=== PATIENT | male | born 1950 | race African-American/Black ===

== ENCOUNTER 2016-12-16 18:19 | Inpatient (IN) | payer OTHER ==
--- NOTE | ~2016-12-16 | DS ---
Discharge Summary [facility] [address] [place]. [address] NAME: RAMOS BERGERON : 48 STATUS : ADM IN [facility]#: [id number] AGE: 66 ADM/REG DATE : 12/16/16 MR#: [id number] REPORT SERV DATE: 12/25/16 DICTATED BY: CARIE BAZZI DATE: 12/25/16 REPORT STATUS : Draft TRANSCRIBED BY: MODL DATE: 12/25/16 ADMISSION DATE: 12/16/2016 DISCHARGE DATE: 12/25/2016 CONSULTANTS: Radha Marcus, ALEXANDRA, and supervised neurologist. DISCHARGE DIAGNOSES: 1. 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 2. 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 3. Rheumatoid arthritis with osteoarthritis. 4. Secondary Parkinson's. 5. Diabetes mellitus type 2 with A1c 5.5. 6. Hypertension. 7. Stage 3 chronic kidney disease. 8. Thoracic aortic aneurysm, 3.9 cm. 9. Previous prostate cancer, resected 2012. 10.History of posttraumatic stress disorder and depression, well compensated with medication at this time. 11.Vitamin D deficiency on October 2016. HISTORY: This gentleman has had a previous right middle cerebral artery stroke with resulting left-sided weakness. Presented to the emergency room at [facility] with 3-day history of right-sided weakness with associated difficulty with dysarthria, dysphagia, and dysmetria. Reportedly began on the Friday prior to admission, difficulty using his right arm to feed himself. Family had also reported some dysarthria and dysphagia, was suspected because of some difficulty swallowing potato chips on the day of admission. He was referred to our team for inpatient care. Imaging included a CT scan of the brain without contrast which showed moderate advanced diffuse atrophy with advanced deep white matter chronic microvascular changes. Stable, 1 cm old infarct, right periventricular area within the genao radiata. Stable, small 4 mm old lacunar infarct, right side of the leesa, numerous small hypodensities, bilateral basal ganglia and thalamus suggesting prominent perivascular spaces. MRI of the brain, 12/17/2016, revealed moderate generalized atrophy. Extensive, old, deep white matter changes and an acute nonhemorrhagic left MCA periventricular infarction. There was old hemosiderin deposits in the right medial frontal lobe and some hemorrhage in an old infarction in the posterior temporal region on the left. MRA of the brain revealed some atherosclerotic changes but no cutoff. MRA of the neck revealed diffuse atherosclerotic redundancy of the internal carotids. No significant stenosis was noted. Echocardiogram on 12/19/2016 showed left atrial size, 3.1 cm, left ventricular ejection fraction, 55-60%. Negative bubble study. Neurology recommended aspirin, Plavix, and statin for secondary stroke prevention. They also felt he had some Parkinson-like features, and started him on low-dose Sinemet with some improvement. Discharge Summary [address] [place]. [address] NAME: RAMOS BERGERON : [birth year] STATUS : ADM IN PAT#: [id number] AGE: 66 ADM/REG DATE : 12/16/16 MR#: [id number] REPORT SERV DATE: 12/25/16 DICTATED BY: CARIE BAZZI DATE: 12/25/16 REPORT STATUS : Draft TRANSCRIBED BY: MODL DATE: 12/25/16 The patient has a lot of chronic pain in his MCPs and in his left hip. X-rays reveal osteoarthritis-type changes. He states he has a history of rheumatoid arthritis also. We did not want to start him on steroids or any other disease modifying agents. So we did order just some low-dose pain medicine for his hands and hip as needed. He is felt to need inpatient rehab and those arrangements are in process. DISCHARGE MEDICATIONS: Norvasc 5 mg daily; Abilify 20 mg daily for his PTSD which appears stable; aspirin 325 mg daily; Lipitor 40 mg daily; Sinemet 25/100 half tablet t.i.d.(in the future this could be titrated up slowly), Temovate 0.05% applied to neck, face, ears, and scalp as directed twice a day; Plavix 75 mg daily; Zantac 150 mg twice a day; Zoloft 150 mg daily; Flomax 0.4 mg at bedtime; Tylenol 650 q.6 hours p.r.n. mild pain; [place] 5/325 half tablet twice a day p.r.n. moderate pain; glucose tablets p.r.n. hypoglycemia; vitamin D 1000 units p.o. daily. 28 minutes spent today with the patient and case management and with discharge planning. MALISSA/OSWALDO Carie Bazzi M.D. / [id number] CC: Carmen Bowling [facility] Niki
--- NOTE | ~2016-12-16 | IDS ---
Interim Discharge Summary [facility] [address] [place]. [address] NAME: RAMOS BERGERON : 48 STATUS : ADM IN [facility]#: [id number] AGE: 66 ADM/REG DATE : 12/16/16 MR#: [id number] REPORT SERV DATE: 12/23/16 DICTATED BY: KENNETH CLAY DATE: 12/23/16 REPORT STATUS : Draft TRANSCRIBED BY: OSWALDO DATE: 12/23/16 ADMISSION DATE: 12/16/2016 DISCHARGE DATE: DIAGNOSES: So far is: 1. Acute left middle cerebral artery territory infarct with acute right hemiparesis. Prior history of stroke, which has resulted in left hemiparesis in this patient also unfortunately. So now, he has weakness in both legs and both hands. Still the prior middle cerebral artery territory stroke was much bigger and resulted in much more debility with his left-sided weakness than his acute cerebrovascular accident, which has resulted in right-sided weakness right now. Other diagnoses that are stable at this time include hypertension; hyperlipidemia; non- insulin-dependent diabetes mellitus type 2; chronic kidney disease, stage III with baseline creatinine of 1.4; rheumatoid arthritis, and benign prostatic hypertrophy. BRIEF HOSPITAL COURSE: The patient is a 66-year-old male who was admitted with the diagnosis of essentially an acute CVA. The patient was admitted for supportive and symptomatic care, and an MRI with an MRA was obtained and also Neurology consult was obtained. The patient's MRI did show that he had suffered an acute left MCA stroke, which has left him with right-sided weakness at this time. The patient has already had an old right MCA stroke that had left him with left-sided weakness previously. So now, he has bilateral upper extremity and bilateral lower extremity weakness, which definitely makes him a candidate to go to inpatient rehab. He is waiting for inpatient rehab placement other than that, he has no other acute issues going on. Neurology has suggested aspirin, Lipitor, and other risk modifications and definitely physical therapy, occupational therapy, and speech therapy at this time. Hence, he is only waiting for rehab placement. He continues to have some difficulty feeding himself. He really has no significant dysphagia and is able to eat soft mechanical diet with aspiration precautions, but has hard time bringing his spoon to his mouth because of the right upper extremity weakness now. This should improve with time, and hopefully, he will be able to get inpatient physical therapy and occupational therapy once he goes to the rehab. All his other chronic problems have been stable so far. RRA/MODL Kenneth Clay M.D. / [id number] CC: Carmen Pedraza TIUNDRA LESHAUN
--- NOTE | ~2016-12-16 | HP ---
History And Physical [facility] [id number] [place]. [address] NAME: RAMOS BERGERON : [birth year] STATUS : ADM [facility] PAT#: [id number] AGE: 66 ADM/REG DATE : 12/16/16 MR#: [id number] REPORT SERV DATE: 12/17/16 DICTATED BY: JEFF KRAUSE DATE: 12/16/16 REPORT STATUS : Draft TRANSCRIBED BY: MODKierra DATE: 12/16/16 DATE OF ADMISSION: 12/16/2016 POINT OF ENTRY: [facility] Emergency Department CHIEF COMPLAINT: Right-sided weakness. HISTORY OF PRESENT ILLNESS: Mr. Bergeron is a 66-year-old gentleman with a history of prior right MCA stroke with resulting left-sided weakness as well as non-insulin dependent diabetes mellitus type 2, hypertension, and hyperlipidemia, who presents to the emergency department today with a three-day history of right-sided weakness with associated dysarthria, dysphagia, and dysmetria. The patient states that beginning on Friday he started to notice right-sided weakness as well as trouble feeding himself. His main trouble feeding himself are that he is having trouble using his right arm due to weakness as well as disequilibrium in an attempt to put food into his mouth. Family also report some dysarthria and also some concern for dysphagia, as he was struggling to swallow some potato chips earlier today. Initial evaluation in the emergency department was notable for a CT scan of the brain that was unremarkable. Labs unremarkable, except for evidence of urinary tract infection as well as a urine drug screen positive for amphetamines and opiates, of which these are not on his home medication list. The patient was subsequently admitted to the Hospitalist Service for further evaluation and management. The patient denies any fevers, night sweats, chills, chest pain, cough, sputum production, shortness of breath, abdominal pain, nausea, vomiting, diarrhea, constipation, melena, hematochezia, or hemoptysis. Family does endorse a strong odor to his urine as well as he endorses urinary frequency. REVIEW OF SYSTEMS: Comprehensive review of systems, otherwise negative unless listed in history of present illness. PREVIOUS MEDICAL HISTORY: 1. Prior right MCA stroke with resulting left-sided hemiparesis. 2. Hypertension. 3. Hyperlipidemia. 4. Non-insulin dependent diabetes mellitus type 2. 5. Prostate cancer, status post prostatectomy. 6. Chronic kidney stage III, baseline creatinine 1.2 to 1.4. 7. Rheumatoid arthritis. 8. BPH. 9. History of thoracic aortic aneurysm. 10.History of diastolic dysfunction. History And Physical [address] [place]. [address] NAME: RAMOS BERGERON : 48 STATUS : ADM [facility] PAT#: [id number] AGE: 66 ADM/REG DATE : 12/16/16 MR#: [id number] REPORT SERV DATE: 12/17/16 DICTATED BY: JEFF KRAUSE DATE: 12/16/16 REPORT STATUS : Draft TRANSCRIBED BY: OSWALDO DATE: 12/16/16 SURGICAL HISTORY: 1. Hernia repair. 2. Prostatectomy. ALLERGIES: NO KNOWN DRUG ALLERGIES. HOME MEDICATIONS: 1. Abilify 20 mg daily. 2. Aspirin 325 mg daily. 3. Clobetasol topical cream b.i.d. 4. Lisinopril 10 mg daily. 5. Meloxicam 7.5 mg daily. 6. Metformin 500 mg daily. 7. Zantac 150 mg b.i.d. 8. Sertraline 150 mg daily. 9. Simvastatin 20 mg daily. 10.Flomax 0.4 mg q.h.s. SOCIAL HISTORY: Denies any tobacco, alcohol, or illicits. FAMILY MEDICAL HISTORY: Notable for diabetes and stroke. LABS AND IMAGIN. White count is 8.6, hemoglobin 16.4, hematocrit is 47.5, and platelet count is 233. INR is 1.1. 2. Sodium is 140 potassium 4.4, chloride 106, carbon dioxide 24, BUN 16, creatinine 1.35, glucose of 76, calcium is 9.2, magnesium is 1.9. 3. Troponin is less than 0.02. 4. Flu swab is negative. 5. Alcohol level, aspirin, and acetaminophen levels are negative. However, urine drug screen is positive for amphetamines and opiates. 6. Urinalysis. Specific gravity is 1.011, trace leukocyte esterase, positive nitrites, with 8 white blood cells per high field with many bacteria. 7. CT scan of the brain shows no acute intracranial abnormality shows stable old deep white matter cerebrovascular accident and changes as well as an old right leesa lacunar infarct. 8. EKG, per my review, shows normal sinus rhythm with occasional PVCs. No evidence of any acute ischemia or infarction. 9. Chest x-ray, per my review, shows no acute cardiopulmonary abnormality. PHYSICAL EXAMINATION: VITAL SIGNS: Temperature is 97.9 degrees Fahrenheit, pulse of 75, respirations 24, saturating 100% on room air, blood pressure 147/100. On recheck, blood pressure is now 134/99. GENERAL: The patient is awake, alert, in no acute distress. Resting comfortably in bed. He is a well-developed, well-nourished male. HEENT: Atraumatic and normocephalic. Moist mucous membranes. Pupils are equal, round, History And Physical [address] [address] NAME: RAMOS BERGERON : 48 STATUS : ADM [facility] PAT#: [id number] AGE: 66 ADM/REG DATE : 12/16/16 MR#: [id number] REPORT SERV DATE: 12/17/16 DICTATED BY: JEFF KRAUSE DATE: 12/16/16 REPORT STATUS : Draft TRANSCRIBED BY: MODL DATE: 12/16/16 reactive to light and accommodation. Extraocular eye movements intact. No scleral icterus. NECK: No jugular venous distention. No carotid bruits. CARDIAC: Regular rate and rhythm. Occasional ectopic beats. Normal S1, S2. No murmurs, rubs, or gallops. LUNGS: Clear to auscultation bilaterally. No wheezes, rhonchi, or crackles. ABDOMEN: Soft, nontender, nondistended. Good bowel sounds. No rebound or guarding or rigidity. EXTREMITIES: Warm and well perfused. No cyanosis, clubbing, or edema. SKIN: Warm and dry. PSYCH: Affect is appropriate. NEURO: Alert and oriented x3. Cranial nerves II through XII are grossly intact. The patient does have some slurred dysarthric speech. He does have some chronic weakness on the left side as well as some lesser weakness on the right side, most pronounced is bilateral upper extremity dysmetria on [id number]. Due to lower extremity weakness, heel-to- jauregui was unable to be tested. Gait was not assessed. ASSESSMENT AND PLAN: Mr. Bergeron is a 66-year-old gentleman with a prior history of right middle cerebral artery stroke with left-sided weakness who presents with right-sided weakness as well as dysmetria, dysphagia, and dysarthria concerning for a possible subacute cerebrovascular accident. Problem list: 1. Possible subacute cerebrovascular accident with right-sided weakness, dysphagia, dysarthria, dysmetria. 2. Urinary tract infection. 3. Non-insulin dependent diabetes mellitus type 2. 4. Hypertension. 5. Hyperlipidemia. 6. Abnormal urine drug screen. PLAN: 1. Possible subacute cerebrovascular accident. We will admit the patient to Hospital Service. Continue the patient's home aspirin as well as statin. We will consult Neurology for assistance in obtaining MRI/MRA in the morning. We will hold off on repeat echocardiogram as one was just done in October. Given reports of weakness and dysphagia, we will consult Speech Therapy as well as physical therapy for assistance. We will make the patient nothing by mouth until formal evaluation. 2. Urinary tract infection. The patient does endorse some symptoms as well as having pyuria and bacteria in his urine. We will place the patient on IV Rocephin. Follow up urine culture. 3. Abnormal urine drug screen. I am unclear as to where he obtained opiates as well as amphetamines that are in his urine drug screen as well as they are not on his home medication list. This needs to be addressed further. 4. Non-insulin dependent diabetes mellitus type 2. Holding the patient's metformin. Place him on a level 2 sliding scale. 5. Deep venous thrombosis prophylaxis. Lovenox subcu. History And Physical [address] [address] NAME: RAMOS BERGERON : 48 STATUS : ADM [facility] PAT#: [id number] AGE: 66 ADM/REG DATE : 12/16/16 MR#: [id number] REPORT SERV DATE: 12/17/16 DICTATED BY: JEFF KRAUSE DATE: 12/16/16 REPORT STATUS : Draft TRANSCRIBED BY: OSWALDO DATE: 12/16/16 CODE STATUS: The patient wished to be full code. JAYDE/OSWALDO Jeff Krause MD / [id number] CC: MD Dr. Pina Zee
--- NOTE | ~2016-12-16 | CN ---
Consultation Report [facility] [address] [place]. [address] NAME: RAMOS BERGERON : 48 STATUS : ADM [facility] PAT#: [id number] AGE: 66 ADM/REG DATE : 12/16/16 MR#: [id number] REPORT SERV DATE: 12/18/16 DICTATED BY: GIL ALFONSO DATE: 12/18/16 REPORT STATUS : Draft TRANSCRIBED BY: MODKierra DATE: 12/18/16 NEUROLOGY CONSULTATION DATE OF CONSULTATION: 12/18/2016 REASON FOR CONSULTATION: Possible stroke. HOSPITALIST: George Munoz MD HISTORY OF PRESENT ILLNESS: The patient is a 66-year-old male, who was admitted to the hospital because of a three-day history of right-sided weakness. He also experienced dysarthria, dysphagia, dysmetria. Once he was brought into the emergency department, it was found that he had a mild urinary tract infection. The patient also has a history of a right sided MCA stroke with left-sided deficits. However, these symptoms were new and they were different. PAST MEDICAL HISTORY: Diabetes mellitus type 2, hypertension, hyperlipidemia, right-sided MCA stroke, prostate cancer, chronic kidney disease stage 3, rheumatoid arthritis, BPH, thoracic aortic aneurysm, chronic diastolic heart failure, history of tobacco abuse. PAST SURGICAL HISTORY: Hernia repair and prostatectomy. HOME MEDICATION LIST: Includes Abilify 20 mg daily, Vannesa aspirin 325 mg daily, Temovate cream 0.05% topically twice a day, Prinivil 10 mg daily, Mobic 7.5 mg daily, metformin 500 mg daily, Zantac 150 mg b.i.d., Zoloft 150 mg daily, Zocor 20 mg daily, and Flomax 0.4 mg at bedtime. ALLERGIES: NONE. SOCIAL HISTORY: The patient is . He has one son. He lives with his sister. He is retired. He is a former smoker. Does not drink alcohol and reportedly does not use illicits. FAMILY HISTORY: Unobtainable from the patient. REVIEW OF SYSTEMS: For pertinent positives, please see HPI. PHYSICAL EXAMINATION: VITAL SIGNS: The patient is a 66-year-old male, who stands 5 feet 8 inches tall and weighs 162 pounds. He is currently afebrile. Heart rate 80, respiratory rate 18, O2 saturations on room air 98%, blood pressure 141/99. NEURO: The patient is awake. He is oriented x4. He is very dysarthric. There is no aphasia. Pupils are 3 mm, PERRLA. He does have a left-sided facial droop and left tongue Consultation Report [facility] [id number] [place]. [address] NAME: RAMOS BERGERON : 48 STATUS : ADM [facility] PAT#: [id number] AGE: 66 ADM/REG DATE : 12/16/16 MR#: [id number] REPORT SERV DATE: 12/18/16 DICTATED BY: GIL ALFONSO DATE: 12/18/16 REPORT STATUS : Draft TRANSCRIBED BY: OSWALDO DATE: 12/18/16 deviation. No reported sensory deficits in the face. Peripheral vision is fairly intact. He can move all extremities x4. Left arm is slightly contracted in the hand. Upper extremity strength is a 4/5 on the left and a 3/5 on the right. He does have a right pronator drift. He does exhibit ataxia with [id number]. Unable to do [id number]. Does have a slight action tremor on the left. Upper DTRs are 3+ and brisk on the left, 2+ on the right. No reported sensory deficits in the upper extremities. In the lower extremities, strength is a 4/5 on the left and a 3/5 on the right. Left patellar reflex is 3+ and brisk and on the right, it is 2+. He has upgoing toes on the left, downgoing on the right. Clonus in both ankles, more prominent in the left than the right. No reported sensory deficits. The patient did not get up and ambulate at this time. NECK: No carotid bruits, JVD, or thyromegaly. CHEST: Lung sounds clear. Diminished in the bases. CARDIAC: Regular rate and rhythm. LABORATORY DATA: CBC normal. BMP relatively normal, except the creatinine is 1.35. Cholesterol values are elevated. Initial UA is mildly positive for UTI; however, the cath specimen was negative for UTI. MRI of the brain reveals acute nonhemorrhagic left MCA territory infarction, although there are some old hemorrhagic changes. MRA of the head and neck, no vessel cut-off or stenosis. ASSESSMENT/PLAN: 1. Acute left MCA territory infarction. At this point, the patient has been on aspirin 325 mg daily. I will go ahead and add Plavix 75 mg with the aspirin, and the patient will be placed on Lipitor 80 mg p.o. q.h.s. His Zocor will be discontinued. PT and OT Therapy will be consulted. Speech Therapy will be consulted for the dysarthria and possible dysphagia. Case Management will be consulted for rehabilitation placement upon discharge. 2. Mild urinary tract infection. This will be managed per hospitalist team. 3. Hypertension. The patient will be allowed permissive hypertension for the next day or two. 4. Diabetes mellitus type 2. This will be managed per hospitalist team. 5. Depression. The patient will be continued on Zoloft. Thank you again for including us in consultation. We will continue to follow with you. MIKE/OSWALDO DANNY Muñoz-BC / [id number] CC: George Munoz MD Consultation Report [address] [address] NAME: RAMOS BERGERON : 48 STATUS : ADM [facility] PAT#: [id number] AGE: 66 ADM/REG DATE : 12/16/16 MR#: [id number] REPORT SERV DATE: 12/18/16 DICTATED BY: GIL ALFONSO DATE: 12/18/16 REPORT STATUS : Draft TRANSCRIBED BY: OSWALDO DATE: 12/18/16 Volodymyr Heller
[2016-12-16 15:49] LABS: ASCORBIC ACID (UR NOT ORDER) NEG (NEG); BILIRUBIN, URINE NEGATIVE (NEG); ER URINALYSIS TAT 0 Hrs 12 Mins; KETONE, URINE NEGATIVE (NEG); LEUKOCYTE ESTERASE(NOT OR TRACE (NEG); NITRITE (URINE) POS (NEG); WBC (NOT ORDERED) (RFLEX) 8 (0-5)
[2016-12-16 15:52] LABS: BASOPHILS 0.5 %; BASOPHILS ABSOLUTE 0.04 10/3/uL (0.0-0.16); EOSINOPHILS 1.4 %; EOSINOPHILS ABSOLUTE 0.12 10/3/uL (0.0-0.53); ER CBC TAT 0 Hrs 05 Mins; HEMATOCRIT 47.5 % (40.0-51.0); HEMOGLOBIN 16.4 g/dL (13.6-17.8); IMMATURE GRANULOCYTES 0.2 %; IMMATURE GRANULOCYTES ABSOLUTE 0.02 10/3/uL (0.0-0.11); LYMPHOCYTES 26.5 %; LYMPHOCYTES ABSOLUTE 2.28 10/3/uL (0.67-4.30); MEAN CORPUSCULAR HEMOGLOB 33.6 pg (26.0-34.0); MEAN CORPUSCULAR VOLUME 97.3 fL (80-100); MEAN PLATELET VOLUME 9.8 fL (9.2-13.0); MONOCYTES 6.2 %; MONOCYTES ABSOLUTE 0.53 10/3/uL (0.21-1.20); NEUTROPHILS 65.2 %; NEUTROPHILS ABSOLUTE 5.62 10/3/uL (2.02-8.40); PLATELET COUNT 233 10/3/uL (150-400); RBC DISTRIBUTION WIDTH 13.2 % (12.0-16.0); RED CELL COUNT 4.88 10/6/uL (4.7-6.1); WHITE BLOOD CELLS 8.6 10/3/uL (4.5-10.5)
[2016-12-16 15:55] LABS: MANUAL DIFF NO %; MEAN CORPUS HGB CONC 34.5 g/dL (32.0-36.0)
[2016-12-16 15:59] LABS: INTERNATIONAL NORMAL RATI 1.1 UNITS (-); PARTIAL THROMBO TIME 31.1 SEC (22.5-37.2); PROTIME (NOT ORD) 13.8 SEC (12.0-14.5)
[2016-12-16 16:00] LABS: INFLUENZA A SCREEN NEGATIVE (NEGATIVE); INFLUENZA B SCREEN NEGATIVE (NEGATIVE)
[2016-12-16 17:09] LABS: BUN (BLOOD UREA NITROGEN) 16 MG/DL (6-23); CALCIUM, SERUM 9.3 MG/DL (8.5-10.4); CHEST PAIN PROFILE TAT 1 Hrs 22 Mins; CHLORIDE, SERUM 106 MMOL/L (96-112); CO2 (CARBON DIOXIDE) 24 MMOL/L (24-34); CREATININE 1.35 MG/DL (0.70-1.30); GFR AFRICAN AMERICAN 63 ML/MIN (>=60); GFR NON AFRICAN AMERICAN 54 ML/MIN (>=60); GLUCOSE, SERUM 76 MG/DL (60-99); POTASSIUM, SERUM 4.4 MMOL/L (3.5-5.3); SALICYLATE 3.3 MG/DL (-); SODIUM, SERUM 140 MMOL/L (135-148); TROPONIN I <0.02 NG/ML (<0.05)
[2016-12-16 17:10] LABS: ACETAMINOPHEN LEVEL (TYLENOL) < 2.0 MCG/ML (10.0-20.0); ALCOHOL < 10 MG/DL (0)
[~2016-12-16 18:19] MED LIST: ABILIFY10 PO; ASABAYER PO; ASAEC PO; CELEXA20 PO; GLUCPH PO; LOTE20 PO; MOBIC7.5 PO; PRIN10 PO; RISP0.5 PO; ZANTAC 150 PO; ZOCOR20 PO; ZOL100 PO
[2016-12-16 19:20] LABS: AMPHETAMINES (NOT ORD) POS (NEG); BARBITURATES (NOT ORDERED NEG (NEG); BENZODIAZEPINES (NOT ORD) NEG (NEG); CANNABINOIDS (THC) NEG (NEG); COCAINE (NOT ORDERED) NEG (NEG); OPIATES POS (NEG); PHENCYCLIDINE(PCP) NEG (NEG); TRICYCLICS NEG (NEG)
[2016-12-16] MEDS ORDERED: MOBIC7.5 PO (22:16)
[2016-12-16] MEDS ORDERED: GLUCPH PO (22:16)
[2016-12-16] MEDS ORDERED: ZOL100 PO (22:16)
[2016-12-16] MEDS ORDERED: ZOCOR20 PO (22:17)
[2016-12-16] MEDS ORDERED: ZANTAC 150 PO (22:17)
[2016-12-16] MEDS ORDERED: ASABAYER PO (22:17)
[2016-12-16] MEDS ORDERED: PRIN10 PO (22:17)
[2016-12-16] MEDS ORDERED: FLOMAX4 PO (22:18)
[2016-12-16] MEDS ORDERED: ABILIFY20 MG PO (22:18)
[2016-12-16] MEDS ORDERED: TEMOVATE CREAM30 GM TOP (22:19)
[2016-12-17 01:52] LABS: TROPONIN I <0.02 NG/ML (<0.05)
[2016-12-17 01:53] LABS: CK-MB < 0.5 NG/ML; CPK 88 U/L (0-200)
[2016-12-17 01:59] LABS: CHOL/HDL RATIO(NOT ORDER) 4.3 (0-5); CHOLESTEROL 200 MG/DL (< 200); CK-MB < 0.5 NG/ML; CPK 88 U/L (0-200); FREE T4 1.19 NG/DL (0.76-1.46); HDL CHOLESTEROL 46 MG/DL (> 39); LDL CHOLESTEROL 123 MG/DL (< 130); NON-HDL CHOLESTEROL 154 MG/DL (< 160); TRIGLYCERIDE 155 MG/DL (< 150); TROPONIN I <0.02 NG/ML (<0.05)
[2016-12-17 14:42] LABS: WBC (NOT ORDERED) (RFLEX) 0 (0-5)
[2016-12-17 14:52] LABS: ASCORBIC ACID (UR NOT ORDER) NEG (NEG); BILIRUBIN, URINE NEGATIVE (NEG); KETONE, URINE NEGATIVE (NEG); LEUKOCYTE ESTERASE(NOT OR NEG (NEG)
[2016-12-17 17:20] LABS: CPK 95 U/L (0-200); TROPONIN I <0.02 NG/ML (<0.05)
[2016-12-17 17:22] LABS: CK-MB < 0.5 NG/ML
[2016-12-18 03:26] LABS: BASOPHILS 0.1 %; BASOPHILS ABSOLUTE 0.01 10/3/uL (0.0-0.16); EOSINOPHILS ABSOLUTE 0.12 10/3/uL (0.0-0.53); HEMOGLOBIN 16.7 g/dL (13.6-17.8); IMMATURE GRANULOCYTES 0.3 %; IMMATURE GRANULOCYTES ABSOLUTE 0.04 10/3/uL (0.0-0.11); LYMPHOCYTES 19.3 %; LYMPHOCYTES ABSOLUTE 2.21 10/3/uL (0.67-4.30); MANUAL DIFF NO %; MEAN CORPUS HGB CONC 34.1 g/dL (32.0-36.0); MEAN CORPUSCULAR HEMOGLOB 33.3 pg (26.0-34.0); MEAN CORPUSCULAR VOLUME 97.6 fL (80-100); MEAN PLATELET VOLUME 10.1 fL (9.2-13.0); MONOCYTES 8.1 %; MONOCYTES ABSOLUTE 0.93 10/3/uL (0.21-1.20); NEUTROPHILS 71.2 %; NEUTROPHILS ABSOLUTE 8.17 10/3/uL (2.02-8.40); PLATELET COUNT 247 10/3/uL (150-400); RBC DISTRIBUTION WIDTH 13.2 % (12.0-16.0); RED CELL COUNT 5.02 10/6/uL (4.7-6.1); WHITE BLOOD CELLS 11.5 10/3/uL (4.5-10.5)
[2016-12-18 03:39] LABS: BUN (BLOOD UREA NITROGEN) 17 MG/DL (6-23); CALCIUM, SERUM 9.3 MG/DL (8.5-10.4); CHLORIDE, SERUM 106 MMOL/L (96-112); CO2 (CARBON DIOXIDE) 24 MMOL/L (24-34); CREATININE 1.27 MG/DL (0.70-1.30); GFR AFRICAN AMERICAN 67 ML/MIN (>=60); GFR NON AFRICAN AMERICAN 58 ML/MIN (>=60); GLUCOSE, SERUM 87 MG/DL (60-99); POTASSIUM, SERUM 3.8 MMOL/L (3.5-5.3); SODIUM, SERUM 143 MMOL/L (135-148)
[2016-12-18 16:39] LABS: ALBUMIN 4.1 G/DL (3.5-5.0); DIRECT BILIRUBIN 0.2 MG/DL (0.0-0.4); INDIRECT BILIRUBIN(NOT ORDER) 0.5 MG/DL (0.1-0.9); TOTAL BILIRUBIN 0.7 MG/DL (0-1.2); TOTAL PROTEIN 8.3 G/DL (6.0-8.5)
[2016-12-22 06:26] LABS: BASOPHILS 0.5 %; BASOPHILS ABSOLUTE 0.04 10/3/uL (0.0-0.16); EOSINOPHILS 1.4 %; EOSINOPHILS ABSOLUTE 0.12 10/3/uL (0.0-0.53); HEMATOCRIT 46.6 % (40.0-51.0); IMMATURE GRANULOCYTES 0.3 %; IMMATURE GRANULOCYTES ABSOLUTE 0.03 10/3/uL (0.0-0.11); LYMPHOCYTES 32.2 %; MEAN CORPUS HGB CONC 34.3 g/dL (32.0-36.0); MEAN CORPUSCULAR HEMOGLOB 33.8 pg (26.0-34.0); MEAN CORPUSCULAR VOLUME 98.3 fL (80-100); MEAN PLATELET VOLUME 10.2 fL (9.2-13.0); MONOCYTES ABSOLUTE 0.61 10/3/uL (0.21-1.20); NEUTROPHILS 58.6 %; PLATELET COUNT 233 10/3/uL (150-400); RBC DISTRIBUTION WIDTH 13.4 % (12.0-16.0); RED CELL COUNT 4.74 10/6/uL (4.7-6.1); WHITE BLOOD CELLS 8.7 10/3/uL (4.5-10.5)
[2016-12-22 06:27] LABS: MANUAL DIFF NO %
[2016-12-22 06:38] LABS: CALCIUM, SERUM 9.4 MG/DL (8.5-10.4); CHLORIDE, SERUM 108 MMOL/L (96-112); CO2 (CARBON DIOXIDE) 21 MMOL/L (24-34); CREATININE 1.58 MG/DL (0.70-1.30); GFR AFRICAN AMERICAN 52 ML/MIN (>=60); GFR NON AFRICAN AMERICAN 45 ML/MIN (>=60); POTASSIUM, SERUM 4.1 MMOL/L (3.5-5.3); SODIUM, SERUM 142 MMOL/L (135-148)
[2016-12-22 06:39] LABS: BUN (BLOOD UREA NITROGEN) 32 MG/DL (6-23); GLUCOSE, SERUM 113 MG/DL (60-99)
== END 2016-12-25 15:57 | DRG 65 ==
LOC: ER 18:19 → CDU1 23:10 → CDU2 12-17 00:10 → 1SO 12-18 18:28
PROVIDERS: Emergency Medicine; Internal Medicine; Nurse Practitioner
DX: I63.9 Cerebral infarction, unspecified (principal); G81.91 Hemiplegia, unspecified affecting right dominant side; I13.0 Hypertensive heart and chronic kidney disease with heart failure and stage 1 through stage 4 chronic kidney disease, or unspecified chronic kidney disease; N39.0 Urinary tract infection, site not specified; I50.32 Chronic diastolic (congestive) heart failure; I69.354 Hemiplegia and hemiparesis following cerebral infarction affecting left non-dominant side; E11.22 Type 2 diabetes mellitus with diabetic chronic kidney disease; G20 Parkinson's disease; E11.65 Type 2 diabetes mellitus with hyperglycemia; I71.2 Thoracic aortic aneurysm, without rupture; N18.3 Chronic kidney disease, stage 3 (moderate); F43.10 Post-traumatic stress disorder, unspecified; E78.5 Hyperlipidemia, unspecified; R47.1 Dysarthria and anarthria; F32.9 Major depressive disorder, single episode, unspecified; R13.10 Dysphagia, unspecified; R27.8 Other lack of coordination; M06.9 Rheumatoid arthritis, unspecified; N40.0 Benign prostatic hyperplasia without lower urinary tract symptoms; F11.90 Opioid use, unspecified, uncomplicated; F15.90 Other stimulant use, unspecified, uncomplicated; Z87.891 Personal history of nicotine dependence; Z79.82 Long term (current) use of aspirin; Z79.84 Long term (current) use of oral hypoglycemic drugs; Z79.1 Long term (current) use of non-steroidal anti-inflammatories (NSAID); Z79.899 Other long term (current) drug therapy; Z85.46 Personal history of malignant neoplasm of prostate; Z90.79 Acquired absence of other genital organ(s); Z91.81 History of falling
CPT/HCPCS: 70450; 70544; 70548; 70551-52; 71010; 73130-50; 73501-LT; 80048; 80061; 80076; 80305; 80307; 81001; 82140; 82306; 82550; 82553; 82962; 83036; 83735; 84439; 84443; 84484; 85025; 85610; 85730; 87804; 92522-GN; 92610-GN; 93005; 97110-GO; 97110-GP; 97162-GP; 97166-GO; 97530-GP; 99285; A9270-GY; C8929; G8978-CM-GP; G8979-CK-GP; Q9957